=== PATIENT | male | born 1980 | race Caucasian/White ===

== ENCOUNTER 2020-05-08 08:11 | Outpatient (CLI) | payer BC ==
--- NOTE | 2020-05-08 10:55 | RAD ---
CERVICAL SPINE 5 VIEWS: Date: 05/08/2020 HISTORY: Neck pain. Comparison made to cervical spine films of 05/17/2017. FINDINGS: Anterior fusion procedure noted with anterior plate and screws transfixing C3-4. Interbody implant wi th interbody fusion. Posterior alignment is preserved. The other disc spaces are maintained. Mild deg enerative spondylosis and spurring at the C4-5, C5-6, and C6-7 levels. These findings appear stable w hen compared to 2017. There is a slight posterolisthesis at C4-5 in the neutral position measured at approximately 1-2 mm. This does slightly reduce with flexion and slightly exacerbates with extension. No other change in al ignment. IMPRESSION: Degenerative and postoperative changes of the cervical spine noted. Minimal posterolisthesis at C4-5 as described. POS: AH
== END 2020-05-08 08:12 | disposition home or self-care (01) ==
LOC: MADRAD 08:11
PROVIDERS: ATTEND Neurological Surgery
DX: M50.20 Other cervical disc displacement, unspecified cervical region (principal); M47.812 Spondylosis without myelopathy or radiculopathy, cervical region; M43.12 Spondylolisthesis, cervical region; Z98.890 Other specified postprocedural states
CPT/HCPCS: 72050

== ENCOUNTER 2020-08-23 09:16 | Outpatient (CLI) | payer BC ==
--- NOTE | 2020-08-23 10:11 | RAD ---
CERVICAL SPINE SERIES 2 VIEWS: Date: 08/23/2020 HISTORY: Follow-up neck surgery. COMPARISON: 07/11/2020 exam. FINDINGS: Anterior cervical fusion has been performed at the C3-4 level with anterior plate and screws. Disc im plants are seen at the C4-5 and C5-6 levels which appear to be within the confines of the disc levels . IMPRESSION: Postop changes of the spine. POS: OFF
== END 2020-08-23 09:17 | disposition home or self-care (01) ==
LOC: MADRAD 09:16
PROVIDERS: ATTEND Neurological Surgery
DX: M50.20 Other cervical disc displacement, unspecified cervical region (principal); Z98.1 Arthrodesis status
CPT/HCPCS: 72040